=== PATIENT | male | born 1980 | race African-American/Black ===

== ENCOUNTER 2016-09-27 08:18 | Day surgery (SDC) | payer MEDICAID ==
[~2016-09-27] VITALS: Ht 175.3 cm; Wt 90.7 kg
[~2016-09-27 08:18] MED LIST: ADVIL200 MG PO; IBUPROFEN800 MG PO; OMNICEF300 MG PO
[2016-09-27] MEDS ORDERED: HYDROCODON-ACE1 EAC7 PO (10:25)
[2016-09-27 10:30] VITALS: BP 141/95; Ht 175.3 cm; Wt 90.7 kg
[2016-09-27] MEDS ORDERED: OXYCODONE HCL5 MG PO (14:47)
--- NOTE | 2016-09-27 17:10 | NUR ---
LEFT AC PIV DC'D WITH TIP INTACT. PATIENT DRESSING IN PERSONAL CLOTHING
--- NOTE | 2016-09-27 17:30 | NUR ---
DISCHARGED HOME VIA WHEELCHAIR TO PRIVATE VEHICLE WITH SPOUSE AND [id number]
--- NOTE | 2016-09-28 08:19 | OP ---
PATIENT NAME: SADIQ DAVID MEDICAL RECORD: [id number] :80 [facility] DATE: SURGEON: JAME SAVAGE MD DATE OF OPERATION: 09/27/2016 PREOPERATIVE DIAGNOSIS: Recurrent pilonidal cyst. POSTOPERATIVE DIAGNOSIS: Recurrent pilonidal cyst. PROCEDURE PERFORMED: Pilonidal cystectomy. ANESTHESIA: General. COMPLICATIONS: None. SPECIMENS: Pilonidal cyst. ANESTHESIA: General. ESTIMATED BLOOD LOSS: 20 cc. OPERATIVE COURSE: After consent was obtained, the patient was taken to the operating room. General endotracheal intubation was performed. The patient was placed into the prone jackknife position on the operating table. A timeout was taken to confirm the correct patient and procedure. The lower back and upper buttocks were prepped and draped in typical sterile fashion. There was an opening in the midline of the gluteal cleft as well as in the left upper portion of the buttocks. A lacrimal probe was passed from the opening in the left buttock to the midline opening. Methylene blue and hydrogen peroxide were injected. Local anesthetic was administered. An elliptical incision made with a 15 blade scalpel. Dissection continued with electrocautery down to the sacral fascia. The cyst was carefully dissected and the cystic cavity was maintained intact. The specimen was then passed off the field and sent for permanent pathology. Undermining was then performed circumferentially around the wound to allow for mobilization towards the midline. The wound was copiously irrigated and suctioned. Careful attention was paid to hemostasis. The wound was closed in 3 layers. The deep layer was closed with a #1 Stratafix. The intermediate layer was closed with a 2-0 Stratafix. Skin was closed with a 3-0 Stratafix, Mastisol and Steri-Strips. A bolster dressing was then placed. At the end of the case, all needle and instrument counts were correct. No complications occurred. The patient was extubated and transferred to the PACU in stable condition. TRANSINT:[id number] Voice Confirmation ID: [id number] DOCUMENT ID: [id number] JAME SAVAGE MD at 0819 CC: [id number] DICTATION DATE: 09/27/16 1445 RECORDS MANAGEMENT ASSISTANT: 09/27/16 191 [facility] 09/27/16 [facility] [address] [place] [address]
== END 2016-09-27 17:30 | disposition home or self-care (01) ==
LOC: D.OPS 08:18 → D.PAN 10:30 → D.OPS 10:30
DX: L05.91 Pilonidal cyst without abscess (principal)

== ENCOUNTER 2016-12-13 07:10 | Day surgery (SDC) | payer MEDICAID ==
[~2016-12-13] VITALS: Ht 175.3 cm; Wt 87.1 kg
[~2016-12-13 07:10] MED LIST changes: +HYDROCODON-ACE1 EAC7 PO; +OXYCODONE HCL5 MG PO
[2016-12-13] MEDS ORDERED: PRINIVIL20 MG PO (09:46)
[2016-12-13 09:48] VITALS: BP 137/93; Ht 175.3 cm; Wt 87.1 kg
[2016-12-13 11:09] LABS: HEMATOCRIT 49.6 % (42.0-54.0); HEMOGLOBIN 16.5 g/dL (13.5-17.5); MCH 31.5 pg (26.0-34.0); MCHC 33.3 g/dL (31.0-37.0); MCV 94.8 fL (80.0-100.0); MEAN PLATELET VOLUME 12.6 fL (7.4-10.4); RBC 5.23 10x6/uL (4.20-6.10); RDW 13.7 % (11.5-14.5); WBC 5.7 10x3/uL (4.8-10.8)
[2016-12-13] MEDS ORDERED: HYDROCODON-ACE1 EAC7 PO (12:38)
[2016-12-13] MEDS ORDERED: BACTRIM DS TABL1 TAB PO (12:38)
--- NOTE | 2016-12-13 15:20 | NUR ---
PATIENT SITTING ON SIDE OF BED. DEMONSTRATED TO PATIENT AND SPOUSE HOW TO EMPTY EMI DRAIN AND HOW TO ENSURE THAT IT REMAINS COMPRESSED. PATIENT AND SPOUSE EXPRESS UNDERSTANDING. WRITTEN DRAIN CARE INSTRUCTIONS GIVEN.
--- NOTE | 2016-12-13 15:35 | NUR ---
DISCHARGE INSTRUCTIONS REVIEWED WITH PATIENT AND SPOUSE. DISCHARGED HOME VIA WHEELCHAIR TO PRIVATE VEHICLE WITH SPOUSE
--- NOTE | 2016-12-13 21:24 | OP ---
PATIENT NAME: SADIQ DAVID MEDICAL RECORD: [id number] :80 [facility] DATE: SURGEON: JAME SAVAGE MD DATE OF OPERATION: 12/13/2016 SURGEON: Jame Savage MD PREOPERATIVE DIAGNOSIS: Left axillary hidradenitis. POSTOPERATIVE DIAGNOSIS: Left axillary hidradenitis. PROCEDURE PERFORMED: Excisional biopsy of left axillary hidradenitis 10 cm x 6 cm x 3 cm. ANESTHESIA: General. COMPLICATIONS: None. Case was contaminated. ESTIMATED BLOOD LOSS: 20 cc. OPERATIVE COURSE: After consent was obtained, the patient was taken to the operating room and placed in supine position on the operating table. Next, general anesthesia was given via endotracheal intubation. Thereafter, a timeout was taken to confirm the correct patient and procedure. The left axilla was prepped and draped in the typical sterile fashion. A 30 cc of local anesthetic were injected. The site was marked to include the total length of 10 cm, the width was 6 cm. This area enclosed all grossly abnormal areas of previous scarring as well as all the hair bearing areas. Skin incision was made with a 15 blade scalpel. Dissection was taken down the level of the deep subcutaneous tissue using electrocautery. The ellipse of skin was grabbed with the Allis clamp. It was excised at the level of the deep subQ including the epidermis and dermis with electrocautery. This ended up being approximately 3 cm thick. The area was sent for pathology. A single node was dissected out with the tissue and sent for pathology. Next, the margins were generously undermined to allow for tissue were release with electrocautery. Once this was done, the wound was closed in 3 layers. The deep layer was closed with 0 Vicryl suture. The middle layer was closed with running 2-0 Stratafix. The skin was closed with a running 2-0 Stratafix. Prior to closure of the 3 layers, a 10-Salvadorean fluted drain was placed in the subcutaneous tissue. Once the skin was completely closed, it was covered with Mastisol and Steri-Strips and a bulky gauze dressing. At the end of the case, all needle and instruments counts were correct. No complications occurred. The patient was extubated and transferred to the PACU in stable condition. TRANSINT:[id number] Voice Confirmation ID: [id number] DOCUMENT ID: [id number] OPERATIVE REPORT [id number] SADIQ DAVID,JAME Cano MD at 2124 CC: [id number] DICTATION DATE: 12/13/16 1234 CLAIM INSPECTOR: 12/13/16 1907 [facility] 12/13/16 [place] [id number] [place] [id number]
== END 2016-12-13 15:35 | disposition home or self-care (01) ==
LOC: D.OPS 07:10 → D.PAN 09:15 → D.OPS 09:15 → D.PAN 09:45 → D.OPS 15:35
PROVIDERS: Anesthesiology
DX: L72.0 Epidermal cyst (principal); L73.2 Hidradenitis suppurativa; R59.0 Localized enlarged lymph nodes

== ENCOUNTER 2018-03-04 15:09 | Emergency (ER) | payer MEDICAID ==
[~2018-03-04] VITALS: Ht 175.3 cm; Wt 86.4 kg
[~2018-03-04 15:09] MED LIST changes: +BACTRIM DS TABL1 TAB PO; +PRINIVIL20 MG PO
[2018-03-04 15:12] VITALS: Ht 175.3 cm; Wt 86.4 kg
[2018-03-04 15:36] LABS: BASOPHILS 0.6 % (0-2); HEMATOCRIT 51.3 % (42.0-54.0); HEMOGLOBIN 17.2 g/dL (13.5-17.5); LYMPHOCYTES 48.1 % (15-50); MCH 31.7 pg (26.0-34.0); MCHC 33.5 g/dL (31.0-37.0); MCV 94.5 fL (80.0-100.0); MONOCYTES 7.3 % (2-11); PLATELET COUNT 214 10x3/uL (130-400); RBC 5.43 10x6/uL (4.20-6.10); RDW 13.2 % (11.5-14.5); WBC 5.1 10x3/uL (4.8-10.8)
[2018-03-04 15:39] LABS: APPEARANCE CLEAR (CLEAR); BILIRUBIN 1+ (NEGATIVE); COLOR DK YELLOW (YELLOW); GLUCOSE NEGATIVE (NEGATIVE); KETONE SMALL mg/dL (NEGATIVE); NITRITE NEGATIVE (NEGATIVE); PROTEIN 1+ mg/dL (NEGATIVE); UROBILINOGEN NORMAL (NORMAL)
[2018-03-04 15:42] LABS: UDS - AMPHET POSITIVE QUAL (NEGATIVE); UDS - BARB NEGATIVE QUAL (NEGATIVE); UDS - BENZO NEGATIVE QUAL (NEGATIVE); UDS - COCAINE NEGATIVE QUAL (NEGATIVE); UDS - OPIATE NEGATIVE QUAL (NEGATIVE); UDS - PCP NEGATIVE QUAL (NEGATIVE); UDS - THC POSITIVE QUAL (NEGATIVE)
[2018-03-04 15:46] LABS: BILIRUBIN - TOTAL 1.09 mg/dL (0.2-1.3); CALCIUM 9.3 mg/dL (8.5-10.1); CARBON DIOXIDE 30.7 mmol/L (21.0-32.0); CREATININE - SERUM 1.3 mg/dL (0.6-1.3); POTASSIUM - SERUM 3.7 mmol/L (3.5-5.1)
[2018-03-05 00:50] VITALS: BP 136/80
== END 2018-03-05 00:51 | disposition other institution (70) ==
LOC: D.ER 15:09
PROVIDERS: Emergency Medicine
DX: F32.9 Major depressive disorder, single episode, unspecified (principal); R45.850 Homicidal ideations; F19.10 Other psychoactive substance abuse, uncomplicated

== ENCOUNTER → 2018-06-15 06:38 | Outpatient (CLI) | payer MEDICAID ==
[2018-03-04 15:12] VITALS: BMI 28.1
[~2018-06-15 06:38] MED LIST changes: +ACCUPRIL40 MG PO; +PERCOCET 5-3251 TAB PO; +XALATAN 0.0052.5 ML EACH EYE
== END | disposition home or self-care (01) ==
LOC: D.MRI 06:38
DX: M75.42 Impingement syndrome of left shoulder (principal)

== ENCOUNTER 2018-07-14 07:50 | Day surgery (SDC) | payer MEDICAID ==
[2018-07-13 09:11] LABS: HEMATOCRIT 48.4 % (42.0-54.0); HEMOGLOBIN 16.7 g/dL (13.5-17.5); MCH 31.9 pg (26.0-34.0); MCHC 34.5 g/dL (31.0-37.0); MCV 92.5 fL (80.0-100.0); MEAN PLATELET VOLUME 10.6 fL (7.4-10.4); RBC 5.23 10x6/uL (4.20-6.10); RDW 13.6 % (11.5-14.5); WBC 7.5 10x3/uL (4.8-10.8)
[~2018-07-14] VITALS: Ht 175.3 cm; Wt 82.1 kg
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
[~2018-07-14 07:50] MED LIST changes: -PERCOCET 5-3251 TAB PO; -XALATAN 0.0052.5 ML EACH EYE
[2018-07-14] MEDS ORDERED: XALATAN 0.0052.5 ML EACH EYE (09:15)
[2018-07-14 09:19] VITALS: BP 137/88; Ht 175.3 cm; Wt 82.1 kg
[2018-07-14] MEDS ORDERED: PERCOCET 5-3251 TAB PO (11:55)
== END 2018-07-14 15:10 | disposition home or self-care (01) ==
LOC: D.OPS 07:50 → D.PAN 10:45 → D.OPS 12:30
PROVIDERS: Anesthesiology
DX: M67.461 Ganglion, right knee (principal); Z01.812 Encounter for preprocedural laboratory examination